=== PATIENT | female | born 1955 | race Caucasian/White ===

== ENCOUNTER → 2018-03-13 | Outpatient (CLI) | payer BC ==
[~2018-03-13] MED LIST: ASCO-96 PO; ATOR10TA PO; CITA20TA5 PO; IRON PO; MULT-516 PO
[2018-03-13 12:49] LABS: BASOPHILS # (AUTO) 0.07 x10^3/uL (0-0.1); BASOPHILS % (AUTO) 1 % (0-1); EOSINOPHILS # (AUTO) 0.18 x10^3/uL (0-0.4); EOSINOPHILS % (AUTO) 2 % (1-7); LYMPHOCYTES # (AUTO) 2.01 x10^3/uL (1-3.4); LYMPHOCYTES % (AUTO) 24 % (22-44); MD NO; MEAN CORPUSCULAR HEMOGLOBIN 28.4 pg (27.0-34.8); MEAN CORPUSCULAR HGB CONC 32.7 g/dL (32.4-35.8); MEAN PLATELET VOLUME 10.2 fL (7.4-10.4); MONOCYTES # (AUTO) 0.41 x10^3/uL (0.2-0.8); MONOCYTES % (AUTO) 5 % (2-9); NEUTROPHILS # (AUTO) 5.66 x10^3/uL (1.8-6.8); NEUTROPHILS % (AUTO) 68 % (42-75); PLATELET COUNT 237 x10^3/uL (130-400); RED BLOOD COUNT 4.89 x10^6/uL (3.82-5.3); RED CELL DISTRIBUTION WIDTH 14.4 % (9.6-15.2)
[2018-03-13 13:01] LABS: ALBUMIN 3.7 g/dL (3.4-5.0); ANION GAP 11 mmol/L (5-15); CALCIUM 8.8 mg/dL (8.5-10.1); CHLORIDE 108 mmol/L (98-107)
[2018-03-13 13:05] LABS: ALANINE AMINOTRANSFERASE 27 U/L (12-78); ALKALINE PHOSPHATASE 114 U/L (45-117); BILIRUBIN,TOTAL 0.4 mg/dL (0.2-1.0); CREATININE 0.92 mg/dL (0.55-1.02); TOTAL PROTEIN 7.5 g/dL (6.4-8.2)
[2018-03-13 13:09] LABS: MICROSCOPIC NOT IND
== END | disposition home or self-care (01) ==
LOC: STAR 11:45
PROVIDERS: ATTEND Orthopaedic Surgery
DX: Z01.818 Encounter for other preprocedural examination (principal); M24.651 Ankylosis, right hip
CPT/HCPCS: 36415; 80053; 81003; 85025; 87086; 93005

== ENCOUNTER 2018-03-19 09:25 | Inpatient (IN) | payer BC ==
[~2018-03-19] VITALS: Ht 180.3 cm; Wt 85.1 kg
[2018-03-19] MEDS ORDERED: LACTATED RINGERS 1,000 ML IV SCH (13:26)
[2018-03-19] MEDS ORDERED: GABAPENTIN 300 MG CAPSULE PO ONE (13:30)
[2018-03-19] MEDS ORDERED: ACETAMINOPHEN 500 MG TABLET PO ONE (13:30)
[2018-03-19] MEDS ORDERED: ONDANSETRON ODT 8 MG PO ONE (13:30)
[2018-03-19] MEDS ORDERED: LIDOCAINE GEL 2%, 5ML ONE (15:18)
[2018-03-19] MEDS ORDERED: MIDAZOLAM 1 MG/ML, 2ML ONE (15:19)
[2018-03-19] MEDS ORDERED: FENTANYL PF 250 MCG/5ML ONE (15:19)
[2018-03-19] MEDS ORDERED: ROPIvacaine/PF 0.5%, 30 ML ONE (15:21)
[2018-03-19] MEDS ORDERED: KETOROLAC 60 MG/2 ML ONE (15:21)
[2018-03-19] MEDS ORDERED: morphine SULFATE/PF 1 MG/ML, 10ML ONE (15:21)
[2018-03-19] MEDS ORDERED: BACITRACIN 50,000 UNIT ONE (15:22)
[2018-03-19] MEDS ORDERED: SODIUM CHLORIDE 0.9% 100 ML ONE (15:22)
[2018-03-19] MEDS ORDERED: LABETALOL 5MG/ML, 20ML ONE (15:41)
[2018-03-19] MEDS ORDERED: SUCCINYLCHOLINE 20 MG/ML, 10ML ONE (15:41)
[2018-03-19] MEDS ORDERED: TRANEXAMIC ACID 100 MG/ML, 10ML ONE ×2 (15:47)
[2018-03-19] MEDS ORDERED: METOCLOPRAMIDE 5 MG/ML, 2ML IV PRN (17:00)
[2018-03-19] MEDS ORDERED: LORazepam 2 MG/ML, 1ML IVPush PRN (17:00)
[2018-03-19] MEDS ORDERED: FENTANYL PF 100 MCG/2ML IV PRN (17:00)
[2018-03-19] MEDS ORDERED: EPHEDRINE 50 MG/ML, 1ML IM PRN (17:00)
[2018-03-19] MEDS ORDERED: SCOPOLAMINE PATCH, 1.5MG PATCH.TD72 TD PRN (17:00)
[2018-03-19] MEDS ORDERED: hydrALAzine 20 MG/ML, 1ML IV PRN (17:00)
[2018-03-19] MEDS ORDERED: MEPERIDINE/PF 25MG/0.5ML IVPush PRN (17:00)
[2018-03-19] MEDS ORDERED: DIAZEPAM 5 MG/ML, 2ML IVPush PRN (17:00)
[2018-03-19] MEDS ORDERED: HYDROmorphone 1 MG/ML, 1ML IV PRN (17:00)
[2018-03-19] MEDS ORDERED: ONDANSETRON ODT 8 MG PO PRN (17:00)
[2018-03-19] MEDS ORDERED: ALBUTEROL/IPRATROPIUM 2.5MG/0.5MG, 3 ML NPPB PRN (17:00)
[2018-03-19] MEDS ORDERED: MORPHINE SULFATE 4 MG/ML, 1ML IVPush PRN (17:00)
[2018-03-19] MEDS ORDERED: PROMETHAZINE 25 MG/ML, 1ML IV PRN (17:00)
[2018-03-19] MEDS ORDERED: LABETALOL 5MG/ML, 20ML IV PRN (17:00)
[2018-03-19] MEDS ORDERED: MIDAZOLAM 1 MG/ML, 2ML IV PRN (17:00)
[2018-03-19] MEDS ORDERED: OXYcodone 5 MG/5 ML ORAL.SOL UDC PO PRN ×2 (17:00→19:00)
[2018-03-19] MEDS ORDERED: CEFAZOLIN 1,000 MG ONE (17:02)
[2018-03-19] MEDS ORDERED: ONDANSETRON 2MG/ML, 2ML ONE ×2 (17:02→18:13)
[2018-03-19] MEDS ORDERED: PROPOFOL 10 MG/ML, 20ML ONE (17:02)
[2018-03-19] MEDS ORDERED: DEXAMETHASONE 4 MG/ML, 1ML ONE (17:02)
[2018-03-19] MEDS ORDERED: TRANEXAMIC ACID 1,000 MG in SODIUM CHLORIDE 0.9% 100 ML IVPB ONE (17:30)
[2018-03-19] MEDS ORDERED: OXYcodone 5 MG/5 ML ORAL.SOL UDC ONE (17:57)
[2018-03-19] MEDS ORDERED: FENTANYL PF 100 MCG/2ML ONE (17:57)
[2018-03-19] MEDS ORDERED: SCOPOLAMINE PATCH, 1.5MG PATCH.TD72 TD ONE (18:14)
[2018-03-19 18:45] VITALS: BP 98/61
[2018-03-19] MEDS ORDERED: ALUMINUM/MAG/SIMETHICONE 30 ML UDC PO PRN (19:00)
[2018-03-19] MEDS ORDERED: HYDROcodone/APAP 10/325 MG TABLET PO PRN (19:00)
[2018-03-19] MEDS ORDERED: CEFAZOLIN PMX 2GM/100ML 100 ML IVPB SCH (19:00)
[2018-03-19] MEDS ORDERED: ONDANSETRON ODT 4 MG PO PRN (19:00)
[2018-03-19] MEDS ORDERED: morphine SULFATE 10 MG/ML, 1ML IV PRN (19:00)
[2018-03-19] MEDS ORDERED: ACETAMINOPHEN 325 MG TABLET PO PRN (19:00)
[2018-03-19] MEDS ORDERED: ZOLPIDEM 5MG TABLET PO PRN (19:00)
[2018-03-19] MEDS ORDERED: ONDANSETRON 2MG/ML, 2ML IVPush PRN (19:00)
[2018-03-19] MEDS ORDERED: MAGNESIUM HYDROXIDE 8%, 30ML UDC PO PRN (19:00)
[2018-03-19] MEDS: POTASSIUM CHLORIDE 20 MEQ in D5%-0.45% NACL 1,000 ML IV SCH (21:20)
[2018-03-19] MEDS: DOCUSATE 100 MG CAPSULE PO SCH (23:28)
[2018-03-19] MEDS: CEFAZOLIN PMX 2GM/50ML 50 ML IVPB SCH (23:30)
[2018-03-20 00:28] VITALS: BP 98/59
[2018-03-20 04:05] VITALS: BP 103/63
[2018-03-20] MEDS: CEFAZOLIN PMX 2GM/50ML 50 ML IVPB SCH ×2 (05:29→07:41)
[2018-03-20] MEDS: POTASSIUM CHLORIDE 20 MEQ in D5%-0.45% NACL 1,000 ML IV SCH (07:40)
[2018-03-20] MEDS ORDERED: ENOX40SY4 SQ (08:48)
[2018-03-20] MEDS ORDERED: OXYC-302 PO (08:48)
[2018-03-20] MEDS: ENOXAPARIN 40 MG/0.4 ML SQ SCH ×2 (09:52→09:57)
[2018-03-20] MEDS: DOCUSATE 100 MG CAPSULE PO SCH (09:52)
[2018-03-20 11:04] VITALS: BP 116/71
[2018-03-20 12:35] VITALS: BP 108/65
[2018-03-20] MEDS ORDERED: KETOROLAC 30 MG/1 ML IV SCH (19:00)
== END 2018-03-20 13:08 | disposition home or self-care (01) | DRG 470 ==
LOC: ORIP 13:03 → 4NOR 18:39 → DCLOUNGE 03-20 12:58
PROVIDERS: ADMIT Orthopaedic Surgery; ATTEND Orthopaedic Surgery
PROC: 0SR904Z Replacement of Right Hip Joint with Ceramic on Polyethylene Synthetic Substitute, Open Approach (ICD-10-PCS; principal; 2018-03-19 15:30)
DX: M16.11 Unilateral primary osteoarthritis, right hip (principal); Z85.43 Personal history of malignant neoplasm of ovary; F32.9 Major depressive disorder, single episode, unspecified; M81.0 Age-related osteoporosis without current pathological fracture
CPT/HCPCS: 36415; 86850; 86900; J0690; J1100; J1650; J1885; J2250; J2274; J2405; J2704; J2795; J3010; J3480; Q0162; J0330; J7120